=== PATIENT | male | born 1980 | race Native Hawaiian/Other Pacific Islander ===

== ENCOUNTER 2017-10-10 16:51 | Emergency (ER) | payer BC ==
[~2017-10-10] VITALS: Ht 185.4 cm; Wt 108.9 kg
[2017-10-10 17:06] VITALS: TEMP 98
[2017-10-10 17:35] LABS: PLATELET COUNT 176 K/uL (142-355)
[2017-10-10 17:46] LABS: POTASSIUM 4.2 mmol/L (3.6-5.2)
[2017-10-10 18:52] VITALS: BP 151/85
== END 2017-10-10 18:58 | disposition home or self-care (01) ==
LOC: ED 16:51
DX: G45.9 Transient cerebral ischemic attack, unspecified (principal); I10 Essential (primary) hypertension; R00.1 Bradycardia, unspecified; M27.40 Unspecified cyst of jaw
CPT/HCPCS: 36415; 80053; 80307; 81000; 85027; 93005; 99283